=== PATIENT | male | born 1975 | race Caucasian/White ===

== ENCOUNTER → 2016-10-12 | Outpatient (CLI) | payer MEDICARE | LOC: EMI 17:29 | DX: R51 Headache (principal) | CPT/HCPCS: 70551 ==

== ENCOUNTER 2020-08-29 12:39 | Emergency (ER) | payer OTHER ==
[2020-08-29 13:32] LABS: HEMOGLOBIN 14.8 gm/dl (14.0-17.5); RED BLOOD COUNT 4.9 M/UL (4.20-5.50); WHITE BLOOD COUNT 9.3 K/UL (4.5-11.0)
[2020-08-29 13:58] LABS: BUN/CREATININE RATIO 17 (0-10)
== END 2020-08-29 19:11 | disposition home or self-care (01) ==
LOC: ER1 12:39
PROVIDERS: Emergency Medicine
DX: R56.9 Unspecified convulsions (principal); F41.9 Anxiety disorder, unspecified; F19.10 Other psychoactive substance abuse, uncomplicated; Z20.822 Contact with and (suspected) exposure to COVID-19
CPT/HCPCS: 36600; 70450; 71045; 80053; 80307; 81001; 82550; 82553; 82803; 83605; 83874; 83880; 84484; 85025; 85379; 87040; 93005; 96365; 99285; J1953; J7030; J7040; Q9967; U0002

== ENCOUNTER 2020-09-25 17:44 | Emergency (ER) | payer OTHER | END 2020-09-25 20:03 | disposition home or self-care (01) | LOC: ER1 17:44 | DX: L97.119 Non-pressure chronic ulcer of right thigh with unspecified severity (principal); I10 Essential (primary) hypertension | CPT/HCPCS: 87070; 87077; 87186; 87205; 99284 ==

== ENCOUNTER 2022-02-12 19:53 | Emergency (ER) | payer OTHER ==
[2022-02-12] MEDS ORDERED: ERYTHROMYCIN O3.5 GM EYEBOTH (22:19)
== END 2022-02-12 22:36 | disposition home or self-care (01) ==
LOC: ER1 19:53
DX: H57.89 Other specified disorders of eye and adnexa (principal); R40.2410 Glasgow coma scale score 13-15, unspecified time
CPT/HCPCS: 99282